=== PATIENT | female | born 1990 | race Caucasian/White ===

== ENCOUNTER 2022-12-25 06:49 | Outpatient (OUT) | payer BC, SELFPAY ==
[2022-12-25 07:37] LABS: Alanine Aminotransferase 41 U/L (14-59); Albumin Level 3.9 g/dL (3.4-5.0); Alkaline Phosphatase 66 U/L (46-116); Anion Gap 11.2; Aspartate Amino Transferase 24 U/L (15-37); BUN Creatinine Ratio 12.2; Bilirubin Total 0.6 mg/dL (0.2-1.0); Chloride 101 mmol/L (98-107); Chol HDL Ratio 2.6; Cholesterol 157 mg/dL (<=200); Estimated GFR (African America >60 (>=60); Estimated GFR (Non-African Ame >60 (>=60); Globulin 3.8 g/dL; Glucose 110 mg/dL (74-106); HDL Cholesterol 61 mg/dL (40-60); Potassium 4.2 mmol/L (3.5-5.1); Sodium 135 mmol/L (136-145); Total Protein 7.7 g/dL (6.4-8.2); Triglycerides 77 mg/dL (<=150); VLDL CHOLESTEROL 15.4 mg/dL
== END 2022-12-25 06:50 | disposition home or self-care (01) ==
LOC: LAB 06:56
DX: I10 Essential (primary) hypertension (principal); E78.2 Mixed hyperlipidemia
CPT/HCPCS: 36415; 80053; 80061

== ENCOUNTER 2025-01-20 19:52 | Outpatient (REF) | payer BC, SELFPAY | END 2025-01-20 19:53 | disposition home or self-care (01) | LOC: LAB 19:52 | PROVIDERS: PCP Internal Medicine; Visit Provider Obstetrics & Gynecology | DX: N76.4 Abscess of vulva (principal) | CPT/HCPCS: 87070; 87075 ==

== ENCOUNTER 2025-03-11 12:09 | Outpatient (OUT) | payer BC, SELFPAY ==
[2025-03-11 12:48] LABS: Hematocrit 40.0 % (36.0-48.0); Hemoglobin 13.2 g/dL (12.0-16.0); Immature Granulocytes Abs Auto 0.02 10^3/uL (0.00-0.03); Immature Granulocytes Pct Auto 0.2 % (0.0-0.5); Lymphocytes Absolute Auto 2.6 10^3/uL (1.2-3.8); Mean Corpuscular HGB Conc 33.0 g/dL (29.9-35.2); Mean Corpuscular Hemoglobin 28.6 pg (26.7-34.0); Mean Corpuscular Volume 86.8 fL (81.0-99.0); Platelet Count 279 10^3/uL (150-450); Red Blood Count 4.61 10^6/uL (4.20-5.40); White Blood Count 8.3 10^3/uL (4.0-11.0)
[2025-03-11 13:10] LABS: Thyroid Stimulating Hormone 1.042 uIU/mL (0.358-3.740)
[2025-03-12 04:07] LABS: FSH 8.1 mIU/mL (.)
== END 2025-03-11 12:10 | disposition home or self-care (01) ==
LOC: LAB 12:11
PROVIDERS: PCP Internal Medicine; Visit Provider Nurse Practitioner Family
DX: Z01.419 Encounter for gynecological examination (general) (routine) without abnormal findings (principal); E28.2 Polycystic ovarian syndrome
CPT/HCPCS: 36415; 82397; 82627; 83001; 83002; 83036; 84439; 84443; 84702; 85025; 87624; 88175

== ENCOUNTER 2025-03-11 19:14 | Outpatient (REF) | payer BC, SELFPAY | END 2025-03-11 19:15 | disposition home or self-care (01) | LOC: LAB 19:14 | PROVIDERS: PCP Internal Medicine; Visit Provider Physician Assistant | DX: Z01.419 Encounter for gynecological examination (general) (routine) without abnormal findings (principal) | CPT/HCPCS: 87624; 88175 ==